=== PATIENT | male | born 1940 | race Caucasian/White ===

== ENCOUNTER 2018-05-30 11:45 | Inpatient (IN) ==
[2018-05-30] MEDS ORDERED: Sodium Chloride 0.9% 1,000 ML PRIMARY IV ONE (12:33)
--- NOTE | 2018-05-30 12:47 | EKG ---
[address] [address] Measurements Intervals [place] Rate: 87 P: 12 IA: 192 QRS: -38 QRSD: 126 T: 62 QT: 377 QTc: 421 Interpretive Statements SINUS RHYTHM LEFT ANERIOR HEMIBLOCK No previous ECG available for comparison Electronically Signed On 05-31-18 14:10:04 [facility] by Thomas Terry [email or web address]
[2018-05-30 13:26] LABS: VENOUS PH 7.49 (7.32-7.42)
[2018-05-30 13:35] LABS: BASOPHILS # (AUTO) 0.03 10*3/UL; BASOPHILS % (AUTO) 0.4 % (0-1); EOSINOPHILS % (AUTO) 2.7 % (0-8); Hematocrit [HCT] 40.3 % (42.0-52.0); Hemoglobin [HGB] 13.2 g/dL (14.0-18.0); LYMPHOCYTES # (AUTO) 0.89 10*3/uL; MEAN CORPUSCULAR HEMOGLOBIN 29.7 PG (27-31); MEAN CORPUSCULAR HGB CONC 32.8 g/dL (33-37); MEAN CORPUSCULAR VOLUME 90.8 FL (80-90); MEAN PLATELET VOLUME 9.6 FL (7.4-12.2); MONOCYTES # (AUTO) 1.12 10*3/UL (0.3-0.8); MONOCYTES % (AUTO) 14.9 % (5-15); NEUTROPHILS # (AUTO) 5.22 10*3/UL; NEUTROPHILS % (AUTO) 69.6 % (50-80); RED BLOOD COUNT 4.44 10^6/uL (4.70-6.10)
[2018-05-30 13:36] LABS: PLATELET MORPHOLOGY COMMENT NORMAL MORPHOLOGY (NORM); RBC MORPHOLOGY COMMENT NORMAL MORPHOLOGY (NORM); WBC MORPHOLOGY COMMENT NORMAL MORPHOLOGY (NORM)
[2018-05-30 13:37] LABS: BLOOD UREA NITROGEN 18 mg/dL (7-22); LIPASE 79 IU/L (23-300); SERUM ALBUMIN 3.7 g/dL (3.5-4.8)
[2018-05-30 14:09] LABS: BILIRUBIN,URINE SMALL (NEG); CLARITY,URINE CLEAR (CLEAR); COLOR,URINE YELLOW (Y); GLUCOSE, URINE (UA) NEGATIVE (NEG); OCCULT BLOOD,URINE NEGATIVE (NEG); PH,URINE 5.5 (5.0-8.5); PROTEIN,URINE NEGATIVE (NEG); UROBILINOGEN,URINE 0.2 EU/dL (0.2)
--- NOTE | 2018-05-30 14:11 | DI ---
XR CXR 2VW PA/LAT,05/30/2018 12:34 PM: Clinical History: Abdominal pain Previous Exam: None at this facility. Findings: PA and lateral views of the chest are obtained, and demonstrate clear lungs. The cardiomediastinum an d bony thorax are unremarkable. Impression: No acute cardiopulmonary disease.
[2018-05-30 14:15] LABS: URINE SAMPLE TYPE CLEAN CATCH URINE
--- NOTE | 2018-05-30 14:40 | DI ---
CT Abdomen/Pelvis W Contrast,05/30/2018 12:34 PM: Clinical History: Abdominal pain Previous Exam: None at this facility. Findings: Multiple helically acquired CT images are obtained through the abdomen following the intravenous admi nistration of Isovue 300, and demonstrates a large amount of ascites within the abdomen. Lung bases are clear. Coronary calcifications are seen. Peripheral vascular calcifications are also s een. The liver is shrunken with an irregular appearance. There is question of some omental caking. The gallbladder, pancreas, spleen, adrenals and kidneys are unremarkable. Large and small bowel loops are grossly normal. Diffuse degenerative changes of the lumbar spine are noted to include partial lumbarization of the fi fth lumbar vertebral body with a pseudoarticulation on the right. Impression: 1. Large amount of ascites, and hepatic cirrhosis 2. Possible omental caking. Consider paracentesis with cytology.
[2018-05-30] MEDS ORDERED: Lidocaine Inj 1% 20 ML ONE (16:05)
[2018-05-30] MEDS ORDERED: LIDOCAINE W/ SODIUM BICARB 0.5 ML SYR SUBD PRN (16:24)
[2018-05-30] MEDS ORDERED: POLYETHYLENE GLYCOL 3350 17 GM POWDER PO PRN (16:24)
[2018-05-30] MEDS ORDERED: ACETAMINOPHEN 325 MG TABLET PO PRN (16:24)
[2018-05-30] MEDS ORDERED: MAGNESIUM 400 MG/5 ML - 30 ML (MILK OF MAGNESIA) PO PRN (16:24)
[2018-05-30] MEDS ORDERED: DOCUSATE 100 MG CAPSULE PO PRN (16:24)
[2018-05-30] MEDS ORDERED: CALCIUM CARBONATE 500 MG (TUMS) CHEWABLE TABLET PO PRN (16:24)
[2018-05-30 18:01] LABS: WBC, BODY FLUID 5.899 10*3/uL
--- NOTE | 2018-05-30 18:18 | PDOC ---
HPI - History of Present Illness Date of Service: 05/30/18 Time of Service: 17:00 Chief Complaint: Abdominal pain and difficulty breathing History of Present Illness: This very pleasant 77-year-old male who has underlying diabetes mellitus type II, obesity, and a recent left rotator cuff surgery, who comes in stating that over the last 2 weeks he's developed shortness of breath. Been difficult for him to move. He's noticed that he's had abdominal distention with this. His legs were also swelling. He's not had any heart attack in the past, and has never been diagnosed with congestive heart failure. His primary doctor ordered an echocardiogram and an ultrasound that were done in [place] that were reportedly negative. Here in the emergency room, his chest x-ray was negative for any infection, but an abdominal CT scan with contrast showed a shrunken liver consistent with possible cirrhosis, ascites fluid, and omental caking. He states to me that he had a colonoscopy about 3 years ago and his and the patient states that he had polyps that were removed and he is due for repeat colonoscopy sometime this year. He does not drink appreciable amounts of alcohol, and is only an occasional alcohol drinker. He does not smoke. He chewed tobacco until about 2 weeks ago but quit. He denies any constipation or diarrhea problems, but did have some nausea. He's had some abdominal pain and states this just been difficult to move because it feels so distended. He feels like it's been very difficult to taken of breath because of his abdominal discomfort. He did not have any blood transfusions and he has 2 very small tat toos on his right arm that he put on himself. Past Medical History Medical History: 1. Diagnosed metastatic to. 2. Obesity. 3. Left rotator cuff tear status post repair. 4. Hypothyroidism. 5. Hypercholesterolemia Surgical History: 1. Left rotator cuff tear repaired. 2. Colonoscopy 3 years ago with polyps Pertinent Family History: Family history of heart disease. There is no family history of hemachromatosis. Past Social History: Quit smoking over 45 years ago. 2 tobacco until 2 weeks ago. for over 57 years. Has 2 children described as healthy. Worked in insulation for the power plant. Drinks alcohol only occasionally and was not heavy drinker Tobacco Use: Former Smoker In the Past 12 Months, Have Used or Abuse Any of the Following Substance: None Alcohol Use: Occasionally Medication / Allergies Home Medications: Home Medications 3 Medication Instructions Recorded Confirmed Type Levothyroxine Sodium 75 mcg PO DAILY 05/30/18 05/30/18 History Magnesium Hydroxide Susp [Milk Of 30 ml PO PRN PRN 05/30/18 05/30/18 History Magnesia Susp] Metformin HCl [Metformin ER 1,000 mg PO DAILY 05/30/18 05/30/18 History Gastric] Polyethylene Glycol 3350 [Miralax] 17 gm PO PRN PRN 05/30/18 05/30/18 History Simvastatin 10 mg PO DAILY 05/30/18 05/30/18 History Allergies/Adverse Reactions: Allergies Allergy/AdvReac Type Severity Reaction Status Date / Time peanut Allergy Not Verified 05/30/18 12:05 Applicable Review of Systems - Review of Systems All Systems: Reviewed & No Additional Complaints Except as Stated (I did a 12 point review systems and it was negative other than that discussed below and in the history of present illness.) - Musculoskeletal Musculoskeletal: REPORTS: Other (Had recent surgery on left rotator cuff, is in sling. He is set to start therapy here as an outpatient in the next couple of weeks. He states to me that his pain is very well controlled.) Exam - Vitals Vital Signs: Vital Signs Temperature 97 F Temperature Source Temporal Artery Scan Pulse Rate [Pulse Oximeter] 91 Respiratory Rate 20 Blood Pressure [Left Arm] 139/73 Pulse Ox 96 Oxygen Flow Rate 2 Oxygen Delivery Method Nasal Cannula Height 5 ft 8 in Weight 255 lb 2 oz - General General Appearance: No Acute Distress, Cooperative, Obese - Head Head Exam: Normal Inspection, Normocephalic, Atraumatic - Eye Eye Exam: POSITIVE: No Scleral Icterus - ENT ENT Exam: POSITIVE: Mucous Membranes Moist - Neck Neck Exam: Normal Inspection, No Tenderness, No Lymphadenopathy, No Thyromegaly, JVP is not Raised - Respiratory Respiratory Exam: POSITIVE: Clear to Auscultation - Bilaterally, Breathing Non Labored, Normal to Percussion and Palpation - Cardiovascular Cardiovascular Exam: POSITIVE: RRR, No Murmur, No Clicks, No Gallops, No Rubs, No JVD - GI/Abdominal GI/Abdominal Exam: POSITIVE: Normal Bowel Sounds, Non Tender, Non Distended, Soft, Positive for Ascites - Rectal Rectal Exam: POSITIVE: Deferred - External Exam: POSITIVE: Deferred Exam: POSITIVE: Deferred - Extremities Extremities Exam: POSITIVE: No Clubbing Present, No Cyanosis Present, +2 Edema - Back Back Exam: POSITIVE: Normal Inspection, No CVA Tenderness - Neurological Neurological Exam: POSITIVE: Alert, Oriented x 3, Normal Gait, No Facial Droop, Speech Intact / Clear, Moves All Extremities Equally - Psychiatric Psychiatric Exam: POSITIVE: Normal Affect, Normal Mood Results - Labs CBC and BMP: 05/30/18 12:33 05/30/18 12:33 Additional Lab Results: Laboratory Results 05/30/18 05/30/18 05/30/18 12:33 12:33 12:33 WBC 7.50 RBC 4.44 L Hgb 13.2 L Hct 40.3 L MCV 90.8 H MCH 29.7 MCHC 32.8 L RDW Std Deviation 45.9 RDW Coeff of Marco 14.1 Plt Count 390 H MPV 9.6 Immature Gran % (Auto) 0.5 Neut % (Auto) 69.6 Lymph % (Auto) 11.9 [place] % (Auto) 14.9 Eos % (Auto) 2.7 Baso % (Auto) 0.4 Immature Gran # (Auto) 0.04 Neut # (Auto) 5.22 Lymph # (Auto) 0.89 [place] # (Auto) 1.12 H Eos # (Auto) 0.20 Baso # (Auto) 0.03 WBC Morphology Comment Normal morphology Plt Morphology Comment Normal morphology RBC Morph Comment Normal morphology PT INR VBG pH VBG pCO2 VBG HCO3 VBG Base Excess Sodium 136 Potassium 4.2 Chloride 96 L Carbon Dioxide 33 Anion Gap 7 BUN 18 Creatinine 0.6 L Estimated GFR Club Waiter/Waitress BUN/Creatinine Ratio 30.00 H Glucose 156 H Calculated Osmolality 286.0 Lactic Acid Calcium 8.8 Total Bilirubin 0.6 AST 42 ALT 17 L Alkaline Phosphatase 51 Lactate Dehydrogenase Troponin I C-Reactive Protein 7.1 H NT-Pro-B Natriuret Pep Total Protein 6.6 Albumin 3.7 Globulin 2.9 Albumin/Globulin Ratio 1.20 L Amylase 60 Lipase 79 Ur Collection Type Clean catch urine Urine Color Yellow Urine Clarity Clear Urine pH 5.5 Ur Specific [place] 1.020 Urine Protein Negative Urine Glucose (UA) Negative Urine Ketones 15 Urine Occult Blood Negative Urine Nitrate Negative Urine Bilirubin Small Urine Urobilinogen 0.2 Ur Leukocyte Esterase Negative Ur Culture Indicated? Culture not set Fluid WBC Fluid RBC Fluid Polynuclear WBCs Fluid Mononuclear WBCs Peritoneal Color Peritoneal Appearance Peritoneal Volume Peritoneal WBC Periton Neutrophils Peritoneal Monocytes 05/30/18 05/30/18 05/30/18 12:33 12:33 12:36 WBC RBC Hgb Hct MCV MCH MCHC RDW Std Deviation RDW Coeff of Marco Plt Count MPV Immature Gran % (Auto) Neut % (Auto) Lymph % (Auto) [place] % (Auto) Eos % (Auto) Baso % (Auto) Immature Gran # (Auto) Neut # (Auto) Lymph # (Auto) [place] # (Auto) Eos # (Auto) Baso # (Auto) WBC Morphology Comment Plt Morphology Comment RBC Morph Comment PT INR VBG pH VBG pCO2 VBG HCO3 VBG Base Excess Sodium Potassium Chloride Carbon Dioxide Anion Gap BUN Creatinine Estimated GFR BUN/Creatinine Ratio Glucose Calculated Osmolality Lactic Acid 1.0 Calcium Total Bilirubin AST ALT Alkaline Phosphatase Lactate Dehydrogenase Troponin I < 0.012 C-Reactive Protein NT-Pro-B Natriuret Pep 208 Total Protein Albumin Globulin Albumin/Globulin Ratio Amylase Lipase Ur Collection Type Urine Color Urine Clarity Urine pH Ur Specific [place] Urine Protein Urine Glucose (UA) Urine Ketones Urine Occult Blood Urine Nitrate Urine Bilirubin Urine Urobilinogen Ur Leukocyte Esterase Ur Culture Indicated? Fluid WBC Fluid RBC Fluid Polynuclear WBCs Fluid Mononuclear WBCs Peritoneal Color Peritoneal Appearance Peritoneal Volume Peritoneal WBC Periton Neutrophils Peritoneal Monocytes 05/30/18 05/30/18 05/30/18 13:09 16:24 16:24 WBC RBC Hgb Hct MCV MCH MCHC RDW Std Deviation RDW Coeff of Marco Plt Count MPV Immature Gran % (Auto) Neut % (Auto) Lymph % (Auto) [place] % (Auto) Eos % (Auto) Baso % (Auto) Immature Gran # (Auto) Neut # (Auto) Lymph # (Auto) [place] # (Auto) Eos # (Auto) Baso # (Auto) WBC Morphology Comment Plt Morphology Comment RBC Morph Comment PT 11.3 INR 1.12 VBG pH 7.49 H VBG pCO2 43 L VBG HCO3 33 H VBG Base Excess 9 H Sodium Potassium Chloride Carbon Dioxide Anion Gap BUN Creatinine Estimated GFR BUN/Creatinine Ratio Glucose Calculated Osmolality Lactic Acid Calcium Total Bilirubin AST ALT Alkaline Phosphatase Lactate Dehydrogenase 503 Troponin I C-Reactive Protein NT-Pro-B Natriuret Pep Total Protein Albumin Globulin Albumin/Globulin Ratio Amylase Lipase Ur Collection Type Urine Color Urine Clarity Urine pH Ur Specific [place] Urine Protein Urine Glucose (UA) Urine Ketones Urine Occult Blood Urine Nitrate Urine Bilirubin Urine Urobilinogen Ur Leukocyte Esterase Ur Culture Indicated? Fluid WBC Fluid RBC Fluid Polynuclear WBCs Fluid Mononuclear WBCs Peritoneal Color Peritoneal Appearance Peritoneal Volume Peritoneal WBC Periton Neutrophils Peritoneal Monocytes 05/30/18 16:24 WBC RBC Hgb Hct MCV MCH MCHC RDW Std Deviation RDW Coeff of Marco Plt Count MPV Immature Gran % (Auto) Neut % (Auto) Lymph % (Auto) [place] % (Auto) Eos % (Auto) Baso % (Auto) Immature Gran # (Auto) Neut # (Auto) Lymph # (Auto) [place] # (Auto) Eos # (Auto) Baso # (Auto) WBC Morphology Comment Plt Morphology Comment RBC Morph Comment PT INR VBG pH VBG pCO2 VBG HCO3 VBG Base Excess Sodium Potassium Chloride Carbon Dioxide Anion Gap BUN Creatinine Estimated GFR BUN/Creatinine Ratio Glucose Calculated Osmolality Lactic Acid Calcium Total Bilirubin AST ALT Alkaline Phosphatase Lactate Dehydrogenase Troponin I C-Reactive Protein NT-Pro-B Natriuret Pep Total Protein Albumin Globulin Albumin/Globulin Ratio Amylase Lipase Ur Collection Type Urine Color Urine Clarity Urine pH Ur Specific [place] Urine Protein Urine Glucose (UA) Urine Ketones Urine Occult Blood Urine Nitrate Urine Bilirubin Urine Urobilinogen Ur Leukocyte Esterase Ur Culture Indicated? Fluid WBC 5.899 Fluid RBC 0.022 Fluid Polynuclear WBCs 25.8 Fluid Mononuclear WBCs 74.2 Peritoneal Color Red Peritoneal Appearance Clear Peritoneal Volume 4000 Peritoneal WBC 5.899 Periton Neutrophils 25.8 Peritoneal Monocytes 74.2 - EKG Data -: EKG Interpreted by Me Rate: Normal EKG Shows Normal: Sinus Rhythm - Imaging Status: Image Reviewed by Me (Chest x-ray negative on my view for pneumonia. CT scan of the abdomen and pelvis is positive for ascites.) Assessment and Plan - Patient Problems (1) Ascites Current Visit: Yes Status: Acute Code(s): R18.8 - Other ascites Qualifiers: Ascites type: malignant Qualified Code(s): R18.0 - Malignant ascites (2) Shortness of breath Current Visit: Yes Status: Acute Code(s): R06.02 - Shortness of breath (3) Diabetes mellitus type II, controlled Current Visit: Yes Status: Acute Code(s): E11.9 - Type 2 diabetes mellitus without complications Qualifiers: Diabetes mellitus senior care insulin use: without senior care use Diabetes mellitus complication status: without complication Qualified Code(s): E11.9 - Type 2 diabetes mellitus without complications (4) Hypothyroidism Current Visit: Yes Status: Acute Code(s): E03.9 - Hypothyroidism, unspecified Qualifiers: Hypothyroidism type: acquired Qualified Code(s): E03.9 - Hypothyroidism, unspecified (5) Hypercholesterolemia Current Visit: Yes Status: Acute Code(s): E78.00 - Pure hypercholesterolemia, unspecified (6) Obstructive sleep apnea Current Visit: Yes Status: Acute Code(s): G47.33 - Obstructive sleep apnea (adult) (pediatric) (7) Obesity (BMI 35.0-39.9 without comorbidity) Current Visit: Yes Status: Acute Code(s): E66.9 - Obesity, unspecified - Assessment / Plan Additional Assessment/Plan Details: History is really not suggestive of an underlying cause other than nonalcoholic steatohepatitis or [place] is a potential cause for cirrhosis. I think we should do a workup for autoimmune hepatitis although this is not a classical p resentation for, and also hemochromatosis. Ultimately, I suggested that we do a paracentesis to also studied of fluid, make sure there was no evidence of spontaneous bacterial peritonitis, and since also for cytology. With omental caking malignancy is certainly in the differential. Is not clear yet whether the patient will need to be on diuretics as I do not suspect that this is related to alcohol. His laboratories also suggest that if this is cirrhosis, it is early in the game, probably child's Marinelli class A Hold on the metformin especially given contrast CT scan here tonight. The patient told me he would be willing to do a paracentesis, and so we will proceed with that. That procedure and procedure note will be separate and he could've this visit. Given that his total protein looks okay and albumin looks okay currently on hold off on albumin infusion. No fevers and no chills, so we'll try to do a Gram stain on that fluid to make sure we were not missing any bacteria that might suggest spontaneous bacterial peritonitis. Given normal protein level in the serum, I doubt that that will be the case. Plan above was discussed with the patient, his daughter, and his niece and n ephew and they all agreed with the plan. Patient is notably full code.
--- NOTE | 2018-05-30 18:27 | PROCEDURE1 ---
Procedure - - Date and Time of Service: 05/30/2018, 1825 Procedure Performed: Paracentesis : With Imaging (I used ultrasound at bedside, no formal radiology study.) Procedure Note: Procedure performed: Paracentesis Consent was obtained from the patient and the family. Indication for procedure was the following: Indication for procedure: Ascites of unclear etiology Description of procedure: The patient was prepped and draped in the usual fashion after ultrasound guidance helped us isolate the largest ascites pocket we could find. In this case it was located at right mid lateral abdominal wall. Chlorhexidine was used to cleanse the skin. Lidocaine was used for local anesthesia. A #10 blade was then used perform a small dermatotomy. A fenestrated catheter surrounding large-bore needle was then inserted using a Z-line approach with a 60 mL syringe attached. When withdrawing on the 60 mL syringe, peritoneal fluid was noted and 60 mL was drawn and then removed along with the large bore needle, blunt tipped. The catheter was left in peritoneal space. Peritoneal fluid in the syringe was sent for analysis in a purple top, green top, and red top tube, and Vacutainer bottles. The fluid appeared red and somewhat cloudy on my view. A total of 4100 mL was withdrawn via Vacutainer bottles and 60 mL syringe. The catheter was then withdrawn. The insertion site was dressed with gauze and Tegaderm, with no evidence of peritoneal leak or blood loss. Anesthesia: Local with lidocaine. Estimated blood loss: None Disposition: Patient is admitted to the hospital for management of his ascites. Complications: None apparent at time of procedure.
[2018-05-31] MEDS: cefTRIAXone Inj 2 GM in Sodium Chloride 0.9% 100 ML IV SCH (00:19)
--- NOTE | 2018-05-31 04:11 | PDOC ---
Abdomen/Flank HPI - General Chief Complaint: Abdomen Pain Stated Complaint: ABDOMINAL DISTENTION Date Seen by Provider: 05/30/18 Time Seen by Provider: 12:20 Source: POSITIVE: Patient, Spouse Exam Limitations: POSITIVE: No limitations Nurse's Notes Reviewed & Considered: Yes - History of Present Illness Initial Comments: The patient is a 77-year-old male. Patient presents to the emergency room complaining of abdominal distention and discomfort for the past 9 days, progressive. Patient states he had rotator cuff surgery done on the left 9 days ago and states that his symptoms began shortly thereafter. He states he had so me loose bowel movements this morning. Patient states he has been short of breath and his oxygen saturation on room air upon presentation to the emergency room was 85%. He states he gets short of breath with lying down and he prefers to sit, as this is his position of comfort. No fevers or chills. No nausea or vomiting. No melena, hematochezia, hematemesis, dysuria or hematuria. He states he is normally on home oxygen 2 L/m on a when necessary basis. History of diabetes mellitus for which she takes metformin. He is also on simvastatin. He states he occasionally ingests alcohol. Body Location Affected: REPORTS: Abdomen Timing: REPORTS: Gradual, Getting Worse Duration: <1 week (Progressive for 9 days) Severity: Moderate Quality: REPORTS: Other (Abdominal "bloating and distention ") Abdominal Pain Onset Location: REPORTS: Generalized abdomen Abdominal Pain Radiation: REPORTS: No radiation Context: DENIES: None, Activity, Bending, Coughing, Fall, Lifting, Near Fall, Rest, Sitting, Sleep, Standing, Turning, Emotional stress, Camping, Bad Food, Out of Country Travel, Other, Recent Surgery, Recent Trauma Modifying Factors: improves with: Other (Symptoms exacerbated by lying flat.) Associated Symptoms: REPORTS: Swelling/mass in abdomen. DENIES: Denies symptoms, Back pain, Bloody Emesis, Chest pain, Coffee Grounds Emesis, Chills, Diaphoresis, Fever, Fatigue, Headache, Heartburn, Loss of Appetite, Nausea, Rash, Shortness of breath, Syncope, Testicular Pain, Vomiting, Weakness, Grossly Bloody Diarrhea, Constipation, Diarrhea, Dysuria, Incontinent Stool, Incontinent Urine, Mucous Diarrhea, Difficulty Walking, Dizziness, Light Headedness, Numbness, Other Similar Symptoms Previously: No Recent Care Received: REPORTS: Recently Seen, Treated by (Recent rotator cuff surgery left shoulder as above) Any Prior Injuries Related to Current Complaint?: No - Patient Home Medications Home Medications: Home Medications Levothyroxine Sodium 75 mcg PO DAILY 05/30/18 Magnesium Hydroxide Susp [Milk Of Magnesia Susp] 30 ml PO PRN PRN 05/30/18 Metformin HCl [Metformin ER Gastric] 1,000 mg PO DAILY 05/30/18 Polyethylene Glycol 3350 [Miralax] 17 gm PO PRN PRN 05/30/18 Simvastatin 10 mg PO DAILY 05/30/18 - Patient Allergies Allergies/Adverse Reactions: Allergies Allergy/AdvReac Type Severity Reaction Status Date / Time peanut Allergy Not Verified 05/30/18 12:05 Applicable Past Medical History - heen HEENT History: Denies History Cardiovascular History: Hyperlipidemia Respiratory History: Home Oxygen Use Additional Respiratory History: pt currently on 2L [place]. pt states, "they couldn't keep my oxygen up after surgery so I have been on oxygen". pt denies any respiratory disease or diagnose. Gastrointestinal History: Denies History Genitourinary History: Denies History Endocrine History: Type 2 Diabetes (oral) Musculoskeletal History: Other (please comment) Prosthesis or Implant: No Additional Musculoskeletal History: left rotator cuff repair Neurological History: Denies History Blood Disorders: Denies History Psychiatric History: Denies History Male Reproductive History: Denies History Cancer History: Denies History In Past Year Been Physically Harmed or Verbally Threatened: No History of MDRO: No Tobacco Use: Former Smoker Type of alcohol normally used: Beer In the Past 12 Months, Have Used or Abuse Any Substance: None Previous Surgical History: Yes Type / Date of Surgery: left rotator cuff repair Significant Family History: No pertinent family hx Past Medical History Reviewed: Reviewed - No Changes ROS - Limitations ROS Limitations: No Limitations Constitution: REPORTS: Denies Symptoms Cardiovascular: REPORTS: Denies Cardiac Symptoms Respiratory: REPORTS: Denies Resp Symptoms Neurological: REPORTS: Denies Neuro Symptoms Gastrointestinal: REPORTS: Abdominal Pain ("Fullness and distention ") Endocrine: REPORTS: Denies Symptoms Musculoskeletal: REPORTS: Denies MS Symptoms Genitourinary: REPORTS: Denies Symptoms Eyes: REPORTS: Denies Symptoms ENT: REPORTS: Denies Symptoms Skin: REPORTS: Denies Skin Symptoms Lympathic: REPORTS: Denies Lympathic Symptoms Immunologic: POSITIVE: Denies Symptoms Psychiatric: POSITIVE: Denies Psych Symptoms Abdominal/Flank Pain PE - General Appearance General Appearance: POSITIVE: Alert, Cooperative, No Acute Distress, No Evidence of Trauma - HEENT HEENT: POSITIVE: Head Inspection Nml, Eyes Inspection Nml, Ears Inspection Nml, Nose Inspection Nml, Oral/Dental Inspect. Nml, Pharynx Inspect. Nml, PERRL, EOMI - Neck Neck: POSITIVE: Normal Inspection, No Apparent Injury, Other (No JVD) - Respiratory Respiratory: POSITIVE: No Respiratory Distress, Breath Sounds Normal, Chest Non- Tender - Cardiovascular Cardiovascular: POSITIVE: Regular Rate and Rhythm, Heart Sounds Normal, Equal Pulses, Strong Pulses Peripheral Pulses: Radial (R): 2+, Radial (L): 2+ - Chest Chest: POSITIVE: Non Tender - Abdomen Abdomen: Soft: (All Quadrants), Normal Bowel Sounds: (All Quadrants), No Splenomegaly: (All Quadrants), No Hepatomegaly: (All Quadrants), No Guarding: (All Quadrants), No Rebound: (All Quadrants), No Palpable Pulse: (All Quadrants), No Palpabale Mass: (All Quadrants), No Rigidity: (All Quadrants), Tenderness Noted: (RUQ), (LUQ), (RLQ), (LLQ), Distention: (RUQ), (LUQ), (RLQ), (LLQ) Additional Abdominal Details: Abdominal examination shows bowel sounds to be active. Patient does express some vague discomfort on firm palpation over his abdomen. His abdomen is markedly distended. - Back Back: POSITIVE: Normal Inspection - Skin Skin: POSITIVE: Intact, Normal For Race, Warm, Dry, No Rash - Extremities Extremity: Non-Tender: (All Extremities), Normal ROM: (All Extremities), Normal Inspection: (All Extremities), Pelvis Stable: (All Extremities), Normal Tendon Exam: (All Extremities), Edema / Swelling: (RLE), (LLE) - Neurological Neurological: POSITIVE: Affect Apporpriate, Oriented X3, sales market leader Normal As Tested, Motor Normal, Sensation Normal - Psychological Psychiatric: POSITIVE: Affect Appropriate, Mood Appropriate Images - Complete Complete: 1 - Abdomen distended 2 - Lower extremity edema Abdomen Progress - Results Reviewed by me Xrays/CTs/US Reviewed by me: Yes Discussed with Radiologist: Yes Radiology Findings: Chest x-ray normal. CT scan abdomen and pelvis with IV contrast shows much ascites with some omental cakeing. Hepatic cirrhosis. Lab Results Reviewed by Me: Yes CBC and BMP: 05/30/18 12:33 05/30/18 12:33 Lab Results:: Laboratory Results 05/30/18 05/30/18 05/30/18 12:33 12:33 12:33 WBC 7.50 RBC 4.44 L Hgb 13.2 L Hct 40.3 L MCV 90.8 H MCH 29.7 MCHC 32.8 L RDW Std Deviation 45.9 RDW Coeff of Amrco 14.1 Plt Count 390 H MPV 9.6 Immature Gran % (Auto) 0.5 Neut % (Auto) 69.6 Lymph % (Auto) 11.9 Cherry % (Auto) 14.9 Eos % (Auto) 2.7 Baso % (Auto) 0.4 Immature Gran # (Auto) 0.04 Neut # (Auto) 5.22 Lymph # (Auto) 0.89 Cherry # (Auto) 1.12 H Eos # (Auto) 0.20 Baso # (Auto) 0.03 WBC Morphology Comment Normal morphology Plt Morphology Comment Normal morphology RBC Morph Comment Normal morphology VBG pH VBG pCO2 VBG HCO3 VBG Base Excess Sodium 136 Potassium 4.2 Chloride 96 L Carbon Dioxide 33 Anion Gap 7 BUN 18 Creatinine 0.6 L Estimated GFR Wardrobe Assistant BUN/Creatinine Ratio 30.00 H Glucose 156 H Calculated Osmolality 286.0 Lactic Acid Calcium 8.8 Total Bilirubin 0.6 AST 42 ALT 17 L Alkaline Phosphatase 51 Troponin I C-Reactive Protein 7.1 H NT-Pro-B Natriuret Pep Total Protein 6.6 Albumin 3.7 Globulin 2.9 Albumin/Globulin Ratio 1.20 L Amylase 60 Lipase 79 Ur Collection Type Clean catch urine Urine Color Yellow Urine Clarity Clear Urine pH 5.5 Ur Specific [place]opia 1.020 Urine Protein Negative Urine Glucose (UA) Negative Urine Ketones 15 Urine Occult Blood Negative Urine Nitrate Negative Urine Bilirubin Small Urine Urobilinogen 0.2 Ur Leukocyte Esterase Negative Ur Culture Indicated? Culture not set 02/16/19 02/16/19 02/16/19 12:33 12:33 12:36 WBC RBC Hgb Hct MCV MCH MCHC RDW Std Deviation RDW Coeff of Marco Plt Count MPV Immature Gran % (Auto) Neut % (Auto) Lymph % (Auto) Cherry % (Auto) Eos % (Auto) Baso % (Auto) Immature Gran # (Auto) Neut # (Auto) Lymph # (Auto) Cherry # (Auto) Eos # (Auto) Baso # (Auto) WBC Morphology Comment Plt Morphology Comment RBC Morph Comment VBG pH VBG pCO2 VBG HCO3 VBG Base Excess Sodium Potassium Chloride Carbon Dioxide Anion Gap BUN Creatinine Estimated GFR BUN/Creatinine Ratio Glucose Calculated Osmolality Lactic Acid 1.0 Calcium Total Bilirubin AST ALT Alkaline Phosphatase Troponin I < 0.012 C-Reactive Protein NT-Pro-B Natriuret Pep 208 Total Protein Albumin Globulin Albumin/Globulin Ratio Amylase Lipase Ur Collection Type Urine Color Urine Clarity Urine pH Ur Specific Cornucopia Urine Protein Urine Glucose (UA) Urine Ketones Urine Occult Blood Urine Nitrate Urine Bilirubin Urine Urobilinogen Ur Leukocyte Esterase Ur Culture Indicated? 05/30/18 13:09 WBC RBC Hgb Hct MCV MCH MCHC RDW Std Deviation RDW Coeff of Marco Plt Count MPV Immature Gran % (Auto) Neut % (Auto) Lymph % (Auto) Cherry % (Auto) Eos % (Auto) Baso % (Auto) Immature Gran # (Auto) Neut # (Auto) Lymph # (Auto) Cherry # (Auto) Eos # (Auto) Baso # (Auto) WBC Morphology Comment Plt Morphology Comment RBC Morph Comment VBG pH 7.49 H VBG pCO2 43 L VBG HCO3 33 H VBG Base Excess 9 H Sodium Potassium Chloride Carbon Dioxide Anion Gap BUN Creatinine Estimated GFR BUN/Creatinine Ratio Glucose Calculated Osmolality Lactic Acid Calcium Total Bilirubin AST ALT Alkaline Phosphatase Troponin I C-Reactive Protein NT-Pro-B Natriuret Pep Total Protein Albumin Globulin Albumin/Globulin Ratio Amylase Lipase Ur Collection Type Urine Color Urine Clarity Urine pH Ur Specific Corn[place]opia Urine Protein Urine Glucose (UA) Urine Ketones Urine Occult Blood Urine Nitrate Urine Bilirubin Urine Urobilinogen Ur Leukocyte Esterase Ur Culture Indicated? - Patient's Progress Pain Medication Addressed: POSITIVE: Not Applicable School/Work Release Addressed: POSITIVE: Not Applicable Re-examine Time: 15:05 Re-Examine Comment: Ascites, pedal edema, patient and his were advised of results of laboratory and radiologic studies. Advised that the patient needs paracentesis and further evaluation. Case discussed with hospitalist on-call, Dr. Garcia. Patient admitted for further evaluation and treatment. Status: POSITIVE: Unchanged, Re-Examined - Consult Consult (If Yes, Name of Consulting MD & Time Called): Yes (Dr. Garcia, hospitalist, [id number]) Consulting MD will see pt:: [place] [facility] [place] Counseled: POSITIVE: Patient, Family, RE: Lab Results, RE: Radiology Results, RE: DX, RE: Need for F/U Patient Care Time - Estimated PCT Patient Care Time (In Minutes): 60 Vital Signs - VS Reviewed Vital Signs Reviewed: Yes Discharge Clinical Impression: Ascites Qualifiers: Ascites type: malignant Qualified Code(s): R18.0 - Malignant ascites Condition: Stable Date Decision to Admit to Inpatient: 05/30/18 Time Decision to Admit to Inpatient: 15:05
[2018-05-31 05:08] LABS: BASOPHILS # (AUTO) 0.02 10*3/UL; BASOPHILS % (AUTO) 0.2 % (0-1); EOSINOPHILS # (AUTO) 0.11 10*3/UL; EOSINOPHILS % (AUTO) 1.4 % (0-8); Hematocrit [HCT] 36.8 % (42.0-52.0); Hemoglobin [HGB] 11.7 g/dL (14.0-18.0); MEAN CORPUSCULAR HEMOGLOBIN 29.1 PG (27-31); MEAN CORPUSCULAR HGB CONC 31.8 g/dL (33-37); MEAN CORPUSCULAR VOLUME 91.5 FL (80-90); MEAN PLATELET VOLUME 9.6 FL (7.4-12.2); MONOCYTES % (AUTO) 13.7 % (5-15); NEUTROPHILS # (AUTO) 5.68 10*3/UL; NEUTROPHILS % (AUTO) 70.6 % (50-80); RED BLOOD COUNT 4.02 10^6/uL (4.70-6.10)
[2018-05-31 05:22] LABS: BLOOD UREA NITROGEN 18 mg/dL (7-22); GAMMA GLUTAMYL TRANSPEPTIDASE 16 IU/L (8-78); SERUM ALBUMIN 2.9 g/dL (3.5-4.8)
[2018-05-31 05:34] LABS: PLATELET MORPHOLOGY COMMENT NORMAL MORPHOLOGY (NORM); RBC MORPHOLOGY COMMENT NORMAL MORPHOLOGY (NORM); WBC MORPHOLOGY COMMENT NORMAL MORPHOLOGY (NORM)
[2018-05-31] MEDS: LEVOTHYROXINE 75 MCG TABLET PO SCH (06:17)
--- NOTE | 2018-05-31 08:34 | PDOC(PROG) ---
Date of Service: 05/31/18 Time of Service: 08:30 Interval History: Subjective Patient came into the hospital with history of abdominal pain diffuse, also he did report distention the last 2 weeks. His pain he said maybe 7 out of 10 comes and goes. There was no fever. Abdomen was not tender according to him. He did also develop the last 2 days swelling in his legs. 10 days ago he did have a rotator cuff surgery done in [place]. Yesterday evaluation revealed presence of ascites in addition to presence of cirrhosis of the liver and possible omental caking on CT. He feels a lot better he said today compared to yesterday. He said he also had some shortness of breath when he lays flat he's better in that aspect there is no abdominal pain today. Objective : Data - Labs CBC and BMP: 05/31/18 04:45 05/31/18 04:45 Objective : Exam - General General Appearance: No Acute Distress, Cooperative - Head Head Exam: Normal Inspection - Eye Eye Exam: Normal Appearance - ENT ENT Exam: Normal Exam - Neck Neck Exam: Normal Inspection - Respiratory Respiratory Exam: Clear to Auscultation - Bilaterally - Cardiovascular Cardiovascular Exam: RRR - GI/Abdominal GI/Abdominal Exam: Normal Bowel Sounds, Non Tender, Non Distended, Soft, No Organomegaly - Rectal Rectal Exam: Deferred - External Exam: Deferred Exam: Deferred - Extremities Extremities Exam: Normal Inspection - Back Back Exam: Normal Inspection - Neurological Neurological Exam: Alert, Oriented x 3, CN II-XII Intact, No Facial Droop, Speech Intact / Clear - Psychiatric Psychiatric Exam: Normal Affect - Integumentary Integumentary Exam: Normal Color Assessment and Plan - Patient Problems (1) Ascites Current Visit: Yes Status: Acute Comment: This is either secondary to cirrhosis or there is possibility of an underlying cancer, fluid albumin is a send out so we cannot calculate the SAAG yet. The story though goes more with the cirrhosis he did admit that he used to drink 6 packs a day for quite a few years but then he cut back recently. There is edema of his legs, in addition his albumin is 2.9 today. I think will put him on diuretics. Test for etiology of cirrhosis was sent also, including viral, autoimmune etiologies. This probably secondary to alcoholic cirrhosis. Code(s): R18.8 - Other ascites Qualifiers: Ascites type: malignant Qualified Code(s): R18.0 - Malignant ascites (2) Shortness of breath Current Visit: Yes Status: Acute Comment: Secondary to the ascites this is improved. Code(s): R06.02 - Shortness of breath (3) Diabetes mellitus type II, controlled Current Visit: Yes Status: Acute Comment: Same med Code(s): E11.9 - Type 2 diabetes mellitus without complications Qualifiers: Diabetes mellitus lobsterman insulin use: without mcc use Diabetes mellitus complication status: without complication Qualified Code(s): E11.9 - Type 2 diabetes mellitus without complications (4) Hypothyroidism Current Visit: Yes Status: Acute Comment: Same med Code(s): E03.9 - Hypothyroidism, unspecified Qualifiers: Hypothyroidism type: acquired Qualified Code(s): E03.9 - Hypothyroidism, unspecified (5) Hypercholesterolemia Current Visit: Yes Status: Acute Comment: Same med Code(s): E78.00 - Pure hypercholesterolemia, unspecified (6) Obstructive sleep apnea Current Visit: Yes Status: Acute Comment: He is on both CPAP and oxygen at night Code(s): G47.33 - Obstructive sleep apnea (adult) (pediatric) (7) Spontaneous bacterial peritonitis Current Visit: Yes Status: Acute Comment: The ascitic fluid neutrophil count is more than 250 So he was started on antibiotics with Rocephin will continue with antibiotics. We'll see what the cultures will show. There is no abdominal pain today and no tenderness. Code(s): K65.2 - Spontaneous bacterial peritonitis
[2018-05-31] MEDS: Spironolactone Tab 50 MG TAB PO SCH (09:11)
[2018-05-31] MEDS: FUROSEMIDE 40 MG TABLET PO SCH (09:12)
[2018-05-31] MEDS: NYSTATIN 15 GM POWDER TOPICAL SCH ×3 (14:44→20:41)
[2018-05-31] MEDS: ONDANSETRON 4 MG/2 ML VIAL IVP PRN (18:52)
[2018-06-01] MEDS: cefTRIAXone Inj 2 GM in Sodium Chloride 0.9% 100 ML IV SCH ×2 (00:45→23:45)
[2018-06-01] MEDS: LEVOTHYROXINE 75 MCG TABLET PO SCH (05:02)
[2018-06-01 05:56] LABS: BLOOD UREA NITROGEN 10 mg/dL (7-22); BUN/CREATININE RATIO 16.66 (6-20); SERUM ALBUMIN 2.6 g/dL (3.5-4.8)
[2018-06-01] MEDS: FUROSEMIDE 40 MG TABLET PO SCH (07:04)
[2018-06-01] MEDS: Spironolactone Tab 50 MG TAB PO SCH (08:37)
[2018-06-01] MEDS: NYSTATIN 15 GM POWDER TOPICAL SCH ×4 (08:37→20:24)
[2018-06-01] MEDS: sitaGLIPtin Tab 100 MG TAB PO SCH (08:37)
--- NOTE | 2018-06-01 09:39 | PDOC(PROG) ---
Date of Service: 06/01/18 Time of Service: 09:40 Interval History: Subjective Has some abdominal discomfort he said but not as bad as the night he came in. Doesn't feel that he need another paracentesis. Objective : Data - Labs CBC and BMP: 05/31/18 04:45 06/01/18 05:15 Objective : Exam - General General Appearance: No Acute Distress, Cooperative - Head Head Exam: Normal Inspection - Eye Eye Exam: Normal Appearance - ENT ENT Exam: Normal Exam - Neck Neck Exam: Normal Inspection - Respiratory Respiratory Exam: Clear to Auscultation - Bilaterally - Cardiovascular Cardiovascular Exam: RRR - GI/Abdominal GI/Abdominal Exam: Normal Bowel Sounds, Non Tender, Soft, No Organomegaly Additional GI/Abdominal Exam Details: Distended with ascites present - Rectal Rectal Exam: Deferred - External Exam: Deferred - Extremities Extremities Exam: +2 Edema - Back Back Exam: Normal Inspection - Neurological Neurological Exam: Alert, Oriented x 3, CN II-XII Intact, No Facial Droop, Speech Intact / Clear, Moves All Extremities Equally - Psychiatric Psychiatric Exam: Normal Affect Assessment and Plan - Patient Problems (1) Ascites Current Visit: Yes Status: Acute Comment: As I said this either secondary to cirrhosis or malignancy or both. I did review the CT with Dr. Jameson , he agrees that possibly he has some omental caking. I did explain that to the patient. The fluid was only sent today so will take few days to figure out whether there is cancer or not. We are trying some diuretics in case this is only cirrhosis. But I did tell him that I'm not going to change the dosage of the diuretics. He was on furosemide 20 mg a day as was started by his PCP. Will reassess tomorrow and then will decide if we need to do another paracentesis. I did order CEA antigen and PSA as omental caking could be from prostate or GI etiology. Code(s): R18.8 - Other ascites Qualifiers: Ascites type: malignant Qualified Code(s): R18.0 - Malignant ascites (2) Shortness of breath Current Visit: Yes Status: Acute Comment: Seem to be stable. Code(s): R06.02 - Shortness of breath (3) Diabetes mellitus type II, controlled Current Visit: Yes Status: Acute Comment: Continue same medication probably will restart metformin tomorrow Code(s): E11.9 - Type 2 diabetes mellitus without complications Qualifiers: Diabetes mellitus senior care insulin use: without carpet finishing supervisor use Diabetes mellitus complication status: without complication Qualified Code(s): E11.9 - Type 2 diabetes mellitus without complications (4) Hypothyroidism Current Visit: Yes Status: Acute Comment: Same meds Code(s): E03.9 - Hypothyroidism, unspecified Qualifiers: Hypothyroidism type: acquired Qualified Code(s): E03.9 - Hypothyroidism, unspecified (5) Hypercholesterolemia Current Visit: Yes Status: Acute Comment: Continue holding the simvastatin Code(s): E78.00 - Pure hypercholesterolemia, unspecified (6) Obstructive sleep apnea Current Visit: Yes Status: Acute Comment: He is on oxygen. Code(s): G47.33 - Obstructive sleep apnea (adult) (pediatric) (7) Spontaneous bacterial peritonitis Current Visit: Yes Status: Acute Comment: The growth is still negative. So this looks like culture-negative spontaneous bacterial peritonitis. Although this may be a result of cancer. But he do meet the criteria for peritonitis and in the presence of cirrhosis I think we should treat. I did tell him we'll give him a total of 5 days of IV antibiotics. Code(s): K65.2 - Spontaneous bacterial peritonitis
[2018-06-01] MEDS ORDERED: LACTULOSE 20 GM PACKET PO PRN (12:03)
[2018-06-01] MEDS ORDERED: TRIAMCINOLONE ACETONIDE 0.1% 15 GM OINT TOPICAL PRN (13:35)
[2018-06-02] MEDS: LEVOTHYROXINE 75 MCG TABLET PO SCH (04:43)
[2018-06-02 05:24] LABS: BASOPHILS # (AUTO) 0.02 10*3/UL; BASOPHILS % (AUTO) 0.2 % (0-1); EOSINOPHILS # (AUTO) 0.11 10*3/UL; EOSINOPHILS % (AUTO) 1.2 % (0-8); Hematocrit [HCT] 38.5 % (42.0-52.0); Hemoglobin [HGB] 12.2 g/dL (14.0-18.0); LYMPHOCYTES # (AUTO) 1.05 10*3/uL; MEAN CORPUSCULAR HEMOGLOBIN 28.8 PG (27-31); MEAN CORPUSCULAR HGB CONC 31.7 g/dL (33-37); MEAN CORPUSCULAR VOLUME 90.8 FL (80-90); MEAN PLATELET VOLUME 9.5 FL (7.4-12.2); MONOCYTES # (AUTO) 1.42 10*3/UL (0.3-0.8); MONOCYTES % (AUTO) 15.7 % (5-15); NEUTROPHILS # (AUTO) 6.44 10*3/UL; RED BLOOD COUNT 4.24 10^6/uL (4.70-6.10)
[2018-06-02 05:29] LABS: BLOOD UREA NITROGEN 9 mg/dL (7-22)
[2018-06-02 06:06] LABS: PLATELET MORPHOLOGY COMMENT NORMAL MORPHOLOGY (NORM); RBC MORPHOLOGY COMMENT NORMAL MORPHOLOGY (NORM); WBC MORPHOLOGY COMMENT NORMAL MORPHOLOGY (NORM)
[2018-06-02] MEDS: PANTOPRAZOLE 40 MG TABLET PO SCH (07:06)
[2018-06-02] MEDS: FUROSEMIDE 40 MG TABLET PO SCH (07:06)
--- NOTE | 2018-06-02 07:52 | PDOC(PROG) ---
Date of Service: 06/02/18 Time of Service: 08:00 Interval History: Subjective No significant abdominal pain, He said he has some discomfort from the swelling in his belly but it is not near close to the way he felt when he came in. The swelling in the leg may be a little bit less than what it was. Objective : Data - Labs CBC and BMP: 06/02/18 05:00 06/02/18 05:00 Objective : Exam - General General Appearance: No Acute Distress, Cooperative, Obese - Head Head Exam: Normal Inspection - Eye Eye Exam: Normal Appearance - ENT ENT Exam: Normal Exam - Neck Neck Exam: Normal Inspection - Respiratory Respiratory Exam: Clear to Auscultation - Bilaterally - Cardiovascular Cardiovascular Exam: RRR - GI/Abdominal GI/Abdominal Exam: Normal Bowel Sounds, Non Tender, Soft, No Organomegaly Additional GI/Abdominal Exam Details: Ascites present - Rectal Rectal Exam: Deferred - External Exam: Deferred - Extremities Extremities Exam: +2 Edema - Back Back Exam: Normal Inspection - Neurological Neurological Exam: Alert, Oriented x 3, CN II-XII Intact, No Facial Droop, Speech Intact / Clear, Moves All Extremities Equally - Psychiatric Psychiatric Exam: Normal Affect Assessment and Plan - Patient Problems (1) Ascites Current Visit: Yes Status: Acute Comment: We'll continue current management, I still don't have any results from the fluid that was sent. I did tell him probably will give him the Rocephin dosage tomorrow in the afternoon and then discharge him. Continue current diuretics. We'll try to get him an appointment with a home improvement installer. Based on my discussion with him he doesn't seem to need another paracentesis yet. Code(s): R18.8 - Other ascites Qualifiers: Ascites type: malignant Qualified Code(s): R18.0 - Malignant ascites (2) Shortness of breath Current Visit: Yes Status: Acute Comment: Secondary to ascites. Code(s): R06.02 - Shortness of breath (3) Diabetes mellitus type II, controlled Current Visit: Yes Status: Acute Comment: Same medication Code(s): E11.9 - Type 2 diabetes mellitus without complications Qualifiers: Diabetes mellitus local intermodal truck driver insulin use: without assisted use Diabetes mellitus complication status: without complication Qualified Code(s): E11.9 - Type 2 diabetes mellitus without complications (4) Hypothyroidism Current Visit: Yes Status: Acute Comment: Same med Code(s): E03.9 - Hypothyroidism, unspecified Qualifiers: Hypothyroidism type: acquired Qualified Code(s): E03.9 - Hypothyroidism, unspecified (5) Hypercholesterolemia Current Visit: Yes Status: Acute Comment: Continue holding the simvastatin Code(s): E78.00 - Pure hypercholesterolemia, unspecified (6) Spontaneous bacterial peritonitis Current Visit: Yes Status: Acute Comment: Continue antibiotics for 5 days. He'll be done tomorrow. We'll try to give it to him earlier and discharge him after that. Code(s): K65.2 - Spontaneous bacterial peritonitis
[2018-06-02] MEDS: metFORMIN ER 500 MG TABLET PO SCH (08:53)
[2018-06-02] MEDS: Spironolactone Tab 50 MG TAB PO SCH (08:53)
[2018-06-02] MEDS: sitaGLIPtin Tab 100 MG TAB PO SCH (08:53)
[2018-06-02] MEDS: NYSTATIN 15 GM POWDER TOPICAL SCH ×4 (08:55→21:25)
[2018-06-02 10:51] LABS: HEP B CORE IGM ANTIBODY Negative (Negative); HEPATITIS B SURFACE AG Negative (Negative)
[2018-06-02] MEDS: ONDANSETRON 4 MG/2 ML VIAL IVP PRN (12:30)
[2018-06-02 14:11] LABS: HEPATITIS A IGM Negative (Negative)
[2018-06-02 15:11] LABS: IGG 1 213 mg/dL (341 - 894); IGG 2 363 mg/dL (171 - 632); IGG SERUM 661 mg/dL (767 - 1590)
[2018-06-02] MEDS: cefTRIAXone Inj 2 GM in Sodium Chloride 0.9% 100 ML IV SCH (23:34)
[2018-06-03] MEDS ORDERED: SIMETHICONE 80 MG TABLET PO ONE (01:07)
[2018-06-03 05:35] LABS: BLOOD UREA NITROGEN 11 mg/dL (7-22); BUN/CREATININE RATIO 18.33 (6-20)
[2018-06-03] MEDS: LEVOTHYROXINE 75 MCG TABLET PO SCH (05:36)
[2018-06-03] MEDS: FUROSEMIDE 40 MG TABLET PO SCH (06:41)
[2018-06-03] MEDS: PANTOPRAZOLE 40 MG TABLET PO SCH (06:41)
[2018-06-03 08:17] LABS: IGG 3 33.1 mg/dL; IGG 4 21.4 mg/dL
--- NOTE | 2018-06-03 08:50 | PDOC(PROG) ---
Date of Service: 06/03/18 Time of Service: 09:00 Interval History: Subjective Patient said he had some pain last night did not last long the pain was mainly in the abdomen went away quickly. He is denying pain today. He is still saying he is not feeling the way he felt when he came in. He is denying shortness of breath. Objective : Data - Labs CBC and BMP: 06/02/18 05:00 06/03/18 04:20 Objective : Exam - General General Appearance: No Acute Distress, Cooperative - Head Head Exam: Normal Inspection - Eye Eye Exam: Normal Appearance - ENT ENT Exam: Normal Exam - Neck Neck Exam: Normal Inspection - Respiratory Respiratory Exam: Clear to Auscultation - Bilaterally - Cardiovascular Cardiovascular Exam: RRR - GI/Abdominal GI/Abdominal Exam: Normal Bowel Sounds, Soft, No Organomegaly Additional GI/Abdominal Exam Details: Abdomen is distended with ascites present. - Rectal Rectal Exam: Deferred - External Exam: Deferred - Extremities Extremities Exam: +2 Edema - Back Back Exam: Normal Inspection - Neurological Neurological Exam: Alert, Oriented x 3, CN II-XII Intact, No Facial Droop, Speech Intact / Clear, Moves All Extremities Equally - Psychiatric Psychiatric Exam: Normal Affect Assessment and Plan - Patient Problems (1) Ascites Current Visit: Yes Status: Acute Comment: This may be secondary to underlying cirrhosis and also possibility of underlying malignancy. Based on my discussion with him he still he doesn't feel that he need another procedure. I think I'll adjust the dosage of the diuretic today as his weight is up and there is still edema in his legs. Still waiting for the cytology and the albumin in the fluid. Code(s): R18.8 - Other ascites Qualifiers: Ascites type: malignant Qualified Code(s): R18.0 - Malignant ascites (2) Shortness of breath Current Visit: Yes Status: Acute Comment: Likely secondary to the ascites will adjust the diuretics more today. Code(s): R06.02 - Shortness of breath (3) Diabetes mellitus type II, controlled Current Visit: Yes Status: Acute Comment: He is back on his usual meds continue Code(s): E11.9 - Type 2 diabetes mellitus without complications Qualifiers: Diabetes mellitus termite helper insulin use: without fci use Diabetes mellitus complication status: without complication Qualified Code(s): E11.9 - Type 2 diabetes mellitus without complications (4) Hypothyroidism Current Visit: Yes Status: Acute Comment: Same med Code(s): E03.9 - Hypothyroidism, unspecified Qualifiers: Hypothyroidism type: acquired Qualified Code(s): E03.9 - Hypothyroidism, unspecified (5) Hypercholesterolemia Current Visit: Yes Status: Acute Comment: Continue holding the simvastatin Code(s): E78.00 - Pure hypercholesterolemia, unspecified (6) Spontaneous bacterial peritonitis Current Visit: Yes Status: Acute Comment: Tonight will be the final dosage of Rocephin. We'll discharge him tomorrow. We booked him for an appointment with a car customizer and with his primary. I did speak with his primary and left a message to the car customizer. Code(s): K65.2 - Spontaneous bacterial peritonitis
[2018-06-03] MEDS ORDERED: FUROSEMIDE 40 MG TABLET PO ONE (08:57)
[2018-06-03] MEDS: NYSTATIN 15 GM POWDER TOPICAL SCH (09:00)
[2018-06-03] MEDS ORDERED: Spironolactone Tab 50 MG TAB PO SCH (09:00)
[2018-06-03] MEDS: sitaGLIPtin Tab 100 MG TAB PO SCH (09:27)
[2018-06-03] MEDS: metFORMIN ER 500 MG TABLET PO SCH (09:28)
[2018-06-03 12:54] VITALS: BP 174/93; RESP 16; TEMP 98.3; O2SAT 96
--- NOTE | 2018-06-03 13:10 | DCSUMMARY ---
Hospitalization Summary Admit Date: 05/30/2018 Discharge Date: 06/03/18 Hospital Course: Transfer diagnoses 1. 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 Culture negative spontaneous bacterial peritonitis versus inflammatory response to the tumor 3. Cirrhosis of the liver, hepatitis screen negative 4. History of hypothyroidism 5. Obesity 6. History of colonic polyps 7. History of hypercholesterolemia 8. Recent left rotator cuff repair surgery 9. History of sleep apnea on oxygen at night 10. History of diabetes on oral hypoglycemic agent Hospital course This is a 77 years old male with medical history significant for history of celi betes type II, obesity, hypothyroidism and obstructive sleep apnea who also had recent left rotator cuff surgery who presented to the hospital because of abdominal distention and leg swelling in addition to shortness of breath. Apparently he did have an echocardiogram and ultrasound done in [place] and they were negative. A CT of the abdomen done here showed shrunken liver consistent with possible cirrhosis, ascites and possible omental caking. He was admitted to the hospital by Dr. Garcia please see his note. He did have a paracentesis with removal about 4 L of ascitic fluid. The WBC count in the fluid was about 5900 with 25% being neutrophils, culture was sent. He was started on Rocephin 2 g a day. I saw him the next day we continued with antibiotics, I did start him on diuretics. Dr. Garcia did send viral markers and he was negative for hepatitis, he did send autoimmune markers and they were so far negative. Culture was negative. I don't have the albumin level in the fluid yet. I did get a report from the pathologist today that this is suspicious for mesothelioma. I did speak with our surgeon and also discussed it with surgical oncology in [place]. The surgical oncology Dr. Torres who suggested that we do a laparoscopic biopsy first before they would assess his fitness for debulking surgery. I did speak with the family about the need to make a diagnosis before they would assess him in [place], their preference is to have the biopsy done in [place]. I did speak with Dr. Rosa as the family requested that, she is not nutrition teacher but her partner is. I did explain that to the patient and his family they accepted transfer. I did speak with the hospitalist Dr. Degroot in [place] and she accepted the patient. The patient will be discharge today by private vehicle and goes to [place]. Regarding the findings on the cell fluid analysis he had 4 days of IV antibiotics and retrospectively this is either spontaneous bacterial peritonitis which is culture negative or this is and maybe more likely inflammatory response to the tumor. Laboratory Results 05/31/18 06/02/18 06/03/18 04:45 05:00 04:20 Haptoglobin Pending Sodium 134 L Potassium 4.7 Chloride 93 L Carbon Dioxide 32 Anion Gap 9 BUN 11 Creatinine 0.6 L Estimated GFR Agricultural Services Director BUN/Creatinine Ratio 18.33 Glucose 143 H Calculated Osmolality 278.0 Calcium 8.6 L Total Bilirubin Pending GGT Pending ALT Pending Liver Fibrosis Stage Pending [id number] Pending Apolipoprotein A-1 Pending Tumor Marker AFP Serial 1.7 Carcinoembryonic Ag 0.4 IgG TNP IgG Total 661 L IgG1 213 L IgG2 363 IgG3 33.1 IgG4 21.4 Anti-Nuclear Antibody 0.2 Mitochondria M2 Ab <0.1 Anti-Smooth Muscle Ab Negative Livr/Kid Microsome 1 Ab Pending Hepatitis A IgM Ab Negative Hep Bs Antigen Negative Hep B Core IgM Ab Negative Hepatitis C Ab Screen Negative HCV Liver Fibrosis Test Pending Liver Fibrosis Interp Pending Hemochromatosis Source Pending Hemochromat Specimen Pending Hemochromatosis Method Pending Hemochromatosis Results Pending Hemochromatosis Interp Pending Hemochromatosis Review Pending Miscellaneous Test Pending Misc Test Units Pending Misc Test Comment Pending Miscellaneous Test 2 Pending Miscellaneous Test 3 Pending Discharge instruction Diet low-salt activity as started Medications Active Medications Acetaminophen (Tylenol) 650 mg PO Q6H PRN PRN Reason: Pain or Fever Last Admin: 06/01/18 23:50 Dose: 650 mg Documented by: Calcium Carbonate (Tums) 1 - 2 tab PO Q6H PRN PRN Reason: Heartburn Last Admin: 05/31/18 18:56 Dose: 2 tab Documented by: Docusate Sodium (Colace) 100 mg PO BID PRN PRN Reason: Constipation Furosemide (Lasix) 80 mg PO DAILY@0700 CONSTANTINE Sodium Chloride (Normal Saline 0.9%) 25 mls @ 200 mls/hr IV .Post Infusion PRN PRN Reason: No Primary IV for Flush ONLY Ceftriaxone Sodium 2 gm/ (Sodium Chloride) 100 mls @ 100 mls/hr IV Q24H CONSTANTINE Last Admin: 06/02/18 23:34 Dose: 100 mls/hr Documented by: Lactulose (Kristalose Packet) 20 gm PO BID PRN PRN Reason: Constipation Last Admin: 06/01/18 12:49 Dose: 20 gm Documented by: Levothyroxine Sodium (Synthroid) 75 mcg PO DAILY@0530 [facility] Last Admin: 06/03/18 05:36 Dose: 75 mcg Documented by: Lidocaine HCl (Lidocaine Buffered Inj) 0.5 ml SUBD ONCE PRN PRN Reason: IV Starts Magnesium Hydroxide (Milk Of Magnesia Susp) 30 ml PO DAILY PRN PRN Reason: Constipation Last Admin: 06/01/18 09:23 Dose: 30 ml Documented by: Metformin HCl (Glucophage Xr Tab) 1,000 mg PO DAILY [facility] Last Admin: 06/03/18 09:28 Dose: 1,000 mg Documented by: Nystatin (Mycostatin Powder) 0 applic TOPICAL QID [facility] Last Admin: 06/03/18 09:00 Dose: 1 applic Documented by: Ondansetron HCl (Zofran Inj) 4 mg IVP Q4H PRN PRN Reason: NAUSEA / VOMITING Last Admin: 06/02/18 12:30 Dose: 4 mg Documented by: Pantoprazole Sodium (Protonix) 40 mg PO AC BK [facility] Last Admin: 06/03/18 06:41 Dose: 40 mg Documented by: Polyethylene Glycol (Miralax Packet) 17 gm PO DAILY PRN PRN Reason: Constipation Sitagliptin Phosphate (Januvia Tab) 100 mg PO DAILY [facility] Last Admin: 06/03/18 09:27 Dose: 100 mg Documented by: Spironolactone (Aldactone) 200 mg PO DAILY [facility] Last Admin: 06/03/18 09:27 Dose: 200 mg Documented by: Triamcinolone Acetonide (Kenalog Ointment 0.1%) 1 applic TOPICAL ONCE PRN PRN Reason: Dermatitis Follow-up patient has an appointment with his primary coming to Friday. Condition at transfer stable for transfer. Exam - Vitals Vital Signs: Vital Signs Temperature 98.3 F Temperature Source Oral Pulse Rate [Apical] 93 Pulse Rate [Pulse Oximeter] 94 Respiratory Rate 16 Blood Pressure [Right Arm] 174/93 Blood Pressure [Left Arm] 144/68 Pulse Ox 96 Oxygen Flow Rate 2 Oxygen Delivery Method Mask-Simple Height 5 ft 8 in Weight 249 lb 3.2 oz Patient Problems - Patient Problem List (1) Ascites Current Visit: Yes Status: Acute Code(s): R18.8 - Other ascites Qualifiers: Ascites type: malignant Qualified Code(s): R18.0 - Malignant ascites Category: Medical (2) Shortness of breath Current Visit: Yes Status: Acute Code(s): R06.02 - Shortness of breath Category: Medical (3) Diabetes mellitus type II, controlled Current Visit: Yes Status: Acute Code(s): E11.9 - Type 2 diabetes mellitus without complications Qualifiers: Diabetes mellitus correction insulin use: without remote computer terminal operator use Diabetes mellitus complication status: without complication Qualified Code(s): E11.9 - Type 2 diabetes mellitus without complications Category: Medical (4) Hypothyroidism Current Visit: Yes Status: Acute Code(s): E03.9 - Hypothyroidism, unspecified Qualifiers: Hypothyroidism type: acquired Qualified Code(s): E03.9 - Hypothyroidism, unspecified Category: Medical (5) Hypercholesterolemia Current Visit: Yes Status: Acute Code(s): E78.00 - Pure hypercholesterolemia, unspecified Category: Medical (6) Spontaneous bacterial peritonitis Current Visit: Yes Status: Acute Code(s): K65.2 - Spontaneous bacterial peritonitis Category: Medical
[2018-06-03 13:15] LABS: Anti Smooth Muscle Antibody Negative (Negative)
[2018-06-04] MEDS ORDERED: FUROSEMIDE 40 MG TABLET PO SCH (07:00)
[2018-06-05 16:40] LABS: GAMMA GLUTAMYLTRANSFERASE 14 U/L
[2018-06-05 16:41] LABS: ALANINE AMINOTRASFERASE 16 U/L; ALPHA-2-MACROGLOBULIN 121 mg/dL; HAPTOGLOBIN 302 mg/dL
== END 2018-06-03 14:14 | disposition short-term general hospital (02) | DRG 947 ==
LOC: ER 11:45 → MED/SURG 16:08
PROVIDERS: ADMIT Family Medicine; ATTEND Family Medicine